=== PATIENT | female | born 1940 | race Caucasian/White ===

== ENCOUNTER 2023-04-23 14:04 | Emergency (ER) | payer MEDICARE, BC ==
[~2023-04-23] VITALS: Ht 157.5 cm; Wt 57.4 kg
[2023-04-23] MEDS ORDERED: cyclobenzaprine 10mg tablet PO ONE (16:40)
[2023-04-23] MEDS ORDERED: dexamethasone sod phosphate 10mg/ml inj PO STA (16:40)
[2023-04-23] MEDS ORDERED: ibuprofen tablet 400 MG TABLET PO ONE (16:40)
[2023-04-23] MEDS ORDERED: PRED20TA PO (17:07)
[2023-04-23] MEDS ORDERED: CYCL-1 PO (17:07)
[2023-04-23] MEDS ORDERED: IBUP-1984 PO (17:07)
[2023-04-23 17:24] VITALS: BP 160/72; PULSE 70; RESP 16; TEMP 98.1; O2SAT 97
== END 2023-04-23 17:28 | disposition home or self-care (01) ==
LOC: ER 14:04
DX: S39.012A Strain of muscle, fascia and tendon of lower back, initial encounter (principal); Z79.899 Other long term (current) drug therapy; Z79.1 Long term (current) use of non-steroidal anti-inflammatories (NSAID); X58.XXXA Exposure to other specified factors, initial encounter; Y93.89 Activity, other specified; Y92.89 Other specified places as the place of occurrence of the external cause; Y99.8 Other external cause status
CPT/HCPCS: 99284; J1100

== ENCOUNTER 2023-11-16 09:06 | Day surgery (SDC) | payer MEDICARE, BC ==
[2023-11-10 16:04] LABS: BASOPHILS % (AUTO) 0.5 % (0-1); EOSINOPHILS # (AUTO) 0.1 X10'3 (0-0.9); EOSINOPHILS % (AUTO) 1.9 % (0-6); LYMPHOCYTES # (AUTO) 1.7 X10'3 (1.1-4.8); LYMPHOCYTES % (AUTO) 28.9 % (21-51); MEAN CORPUSCULAR HEMOGLOBIN 29.6 PG (27.0-31.0); MEAN CORPUSCULAR HGB CONC 33.2 g/dL (33.0-36.5); MEAN PLATELET VOLUME 6.5 FL (7.4-10.4); MONOCYTES # (AUTO) 0.7 X10'3 (0-0.9); MONOCYTES % (AUTO) 11.4 % (2-12); NEUTROPHILS # (AUTO) 3.4 X10'3 (1.8-7.7); NEUTROPHILS % (AUTO) 57.3 % (42-75); PRE OP HEMATOCRIT 39.4 % (35.0-45.0); PRE OP HEMOGLOBIN 13.1 g/dL (12.0-16.0); PRE OP PLATELET COUNT 316 X10'3 (140-440); PRE OP WHITE BLOOD COUNT 5.9 10'3 (4.8-10.8); RED BLOOD COUNT 4.43 X10'6 (4.20-5.60); RED CELL DISTRIBUTION WIDTH 14.5 % (11.5-14.5)
[2023-11-10 16:07] LABS: ALBUMIN 3.6 G/DL (3.4-5.0); ALKALINE PHOSPHATASE 128 IU/L (46-116); BLOOD UREA NITROGEN 12 MG/DL (7-18); BUN/CREATININE RATIO 15.6 (10.0-20.0); CALCIUM 9.1 MG/DL (8.5-10.1); CHLORIDE 102 MMOL/L (99-107); CREATININE 0.77 MG/DL (0.40-0.90); PRE OP ALT 18 U/L (30-65); PRE OP ANION GAP 5 (8-16); PRE OP AST 18 U/L (10-37); PRE OP BILIRUB, TOTAL 0.3 MG/DL (0.0-1.0); PRE OP GLUCOSE 104 MG/DL (70-104); PRE OP SODIUM 133 MMOL/L (135-145); TOTAL CARBON DIOXIDE 26.2 MMOL/L (24-32); TOTAL PROTEIN 7.1 G/DL (6.4-8.2); eGFR 71 ML/MIN
[2023-11-16] VITALS (15 sets, daily range): BP systolic 114–147; BP diastolic 60–92; PULSE 48–83; RESP 12–19; TEMP 97.7; O2SAT 92–98
[~2023-11-16] VITALS: Ht 160 cm; Wt 50.1 kg
[2023-11-16] MEDS: cefazolin 2gm/D5W 100mL 100 ML IV ONE (05:30)
[~2023-11-16 09:06] MED LIST: CHOL20002 PO; FAMO40TA58 PO; GLUC1TAB75 PO; LISI10TA27 PO; MULT-1249 PO
[2023-11-16] MEDS: ringers solution, lacted 1,000 ML IV SCH (10:23)
[2023-11-16] MEDS: famotidine 20mg tablet PO ONE (10:24)
[2023-11-16] MEDS ORDERED: LIDOcaine 1% (10mg/ml)w/preservative inj. 20ml MDV ONE (10:39)
[2023-11-16] MEDS ORDERED: BUPIVAcaine/PF 2.5mg/ml (0.25%) 10ml vial ONE (10:40)
[2023-11-16] MEDS ORDERED: hydrALAZINE 20mg/ml inj. IV PRN (10:55)
[2023-11-16] MEDS ORDERED: labetalol 20mg/4ml (5mg/ml) syringe IV PRN (10:55)
[2023-11-16] MEDS ORDERED: ringers solution, lacted 1,000 ML IV SCH (10:55)
[2023-11-16] MEDS ORDERED: meperidine/PF 25mg/ml syringe IV PRN ×2 (10:55)
[2023-11-16] MEDS ORDERED: morphine 2 MG/ML inj. syringe IV PRN (10:55)
[2023-11-16] MEDS ORDERED: ondansetron/PF 4mg/2ml inj IV PRN (10:55)
[2023-11-16] MEDS ORDERED: morphine 4 MG/ML inj SYRINge IV PRN (10:55)
[2023-11-16] MEDS ORDERED: proCHLORperazine 10 MG/2 ml inj IV PRN (10:55)
[2023-11-16] MEDS ORDERED: acetaminophen 1,000mg/100ml IV 100 ML IV ONE (10:55)
[2023-11-16] MEDS ORDERED: sevoflurane 250ml liquid IH ONE (11:04)
[2023-11-16] MEDS ORDERED: fentaNYL/PF 50MCG/1 ML 2ML syringe ONE (11:10)
[2023-11-16] MEDS ORDERED: midazolam 1 mg/ML 2ml injection ONE (11:13)
[2023-11-16] MEDS ORDERED: propofol inj 20 ML IV ONE (11:24)
[2023-11-16] MEDS ORDERED: rocuronium 10mg/ml inj IV ONE (11:24)
[2023-11-16] MEDS ORDERED: LIDOcaine 2% (20mg/ml) 5ml vial ONE (11:24)
[2023-11-16] MEDS ORDERED: dexamethasone sod phosphate 4mg/ml inj. ONE (11:25)
[2023-11-16] MEDS ORDERED: ondansetron/PF 4mg/2ml inj ONE (11:25)
[2023-11-16] MEDS: LIDOCAINE 1% w/preservative (10 MG/ML) inj. 10mL VIAL IJ ONE (11:30)
[2023-11-16] MEDS: meperidine/PF 25mg/ml syringe IV PRN (12:48)
[2023-11-16] MEDS: HYDROcodone/acetaminophen 5mg/325mg tablet PO PRN (14:03)
== END 2023-11-16 13:58 | disposition home or self-care (01) ==
LOC: PAS 09:06
PROVIDERS: ATTEND Surgery
DX: K43.2 Incisional hernia without obstruction or gangrene (principal); I10 Essential (primary) hypertension; I20.9 Angina pectoris, unspecified; E78.5 Hyperlipidemia, unspecified; K21.9 Gastro-esophageal reflux disease without esophagitis; M19.90 Unspecified osteoarthritis, unspecified site; Z79.899 Other long term (current) drug therapy; Z90.49 Acquired absence of other specified parts of digestive tract; Z90.710 Acquired absence of both cervix and uterus; Z96.651 Presence of right artificial knee joint; Z96.649 Presence of unspecified artificial hip joint; Z98.890 Other specified postprocedural states; Z80.0 Family history of malignant neoplasm of digestive organs
CPT/HCPCS: 36415; 49593; 80053; 82948; 85025; 93005; A4215; A4618; A7000; C1781; J0690; J1100; J2001; J2175; J2250; J2405; J2704; J2710; J3010; J3490; J7030; J7120; Z7506; Z7508; Z7512; Z7610